=== PATIENT | male | born 1985 | race Caucasian/White ===

== ENCOUNTER 2022-07-19 09:18 | Emergency (ER) | payer OTHER ==
[2022-07-19 09:28] VITALS: BP 149/71
--- NOTE | 2022-07-19 10:35 | ED Physician Documentation ---
PD HPI UPPER EXT INJURY - Stated complaint Stated Complaint: SWOLLEN RT ELBOW - Chief complaint Chief Complaint: Ext Problem - History obtained from History obtained from: Patient - History of Present Illness Location: Right, Elbow Type of injury: Other (does work outdoors with hand tools. No noted direct impact/injury.). No: Fall, Twist Timing - onset: How many weeks ago (1) Timing - duration: Weeks (1) Timing - details: Gradual onset, Still present (worsening despite trying to use less forcefully.) Worsened by: Moving, Palpating Associated symptoms: Swelling, Discolored (redness the past 2-3d ays, increased.). No: Weakness, Numbness Similar symptoms before: Has not had sx before Review of Systems Constitutional: denies: Fever, Chills Nose: denies: Rhinorrhea / runny nose, Congestion Throat: denies: Sore throat Respiratory: denies: Cough Skin: denies: Abrasion (s), Laceration (s) Neurologic: denies: Focal weakness, Numbness PD PAST MEDICAL HISTORY - Past Medical History Past Medical History: Yes Respiratory: Asthma Musculoskeletal: None, Other (denies prior gout) - Past Surgical History Past Surgical History: Yes - Allergies Allergies/Adverse Reactions: Allergies Allergy/AdvReac Type Severity Reaction Status Date / Time No Known Drug Allergies Allergy Verified 07/19/22 09:28 - Social History Does the pt smoke?: No Smoking Status: Never smoker Does the pt drink ETOH?: Yes Does the pt have substance abuse?: Yes Substance Use and Type: Marijuana - Immunizations Immunizations are current?: Yes PD ED PE NORMAL - Vitals Vital signs reviewed: Yes - General General: Alert and oriented X 3, No acute distress, Well developed/nourished - Derm Derm: Normal color, Warm and dry - Extremities Extremities: Other (right elbow with redness and warmth in [place] around the bursa. No skin sores. No spread beyond a uniform lower [place] around bursa. ) - Neuro Neuro: No motor deficit, No sensory deficit Results - Vitals Vitals: Vital Signs - 24 hr 07/19/22 09:26 Temperature 36.5 C Heart Rate 71 Respiratory 16 Rate Blood Pressure 149/71 H O2 Saturation 98 Oxygen O2 Source Room air PD Medical Decision Making - ED course Complexity details: considered differential (looks and feels like bursitis. No history of gout. ), d/w patient Departure - Departure Disposition: 01 Home, Self Care Clinical Impression: Olecranon bursitis of right elbow Condition: Stable Record reviewed to determine appropriate education?: Yes Instructions: ED Bursitis Elbow Olecranon Follow-Up: Orthopedic Care [Provider Group] Comments: This looks to be simple bursitis of the elbow. Does not have the appearance I would feel of an infectious bursitis. I would treat it with decreased motion and vigorous activity of the elbow such as shoveling chopping raking etc. Minimize it over the next several days to week if you can. An Mark wrap over the area may be helpful for swelling. Try not to lean on your elbow as well to decrease irritation. I would suggest some regular anti-inflammatory such as ibuprofen 3 [id number] tablets 2 or 3 times daily with food regularly for the next 5 to 7 days. Add Tylenol if needed for pain. This will typically improve it and then be done. The issue then would be if you have repetitive episodes in the same area or through other joints, then consideration would be for systemic issues such as gout or rheumatoid arthritis. At this point I do not feel you need any testing for those based on this episode. More so would be if you have repetitive episodes. Recheck if not better in the next week. Follow-up with your primary care or walk-in clinic or more to the point with the orthopedic office. Other considerations would be cysts even more decreased use, possible sling, and also changes in anti-inflammatories to include steroid oral type anti-inflammatories. These likely will not be needed. Discharge Date/Time: 07/19/22 11:11
== END 2022-07-19 11:11 | disposition home or self-care (01) ==
LOC: ED 09:18
DX: M70.21 Olecranon bursitis, right elbow (principal)
CPT/HCPCS: 99282; 99283

== ENCOUNTER 2023-07-15 14:30 | Outpatient (CLI) | payer OTHER | END 2023-07-15 14:31 | disposition home or self-care (01) | LOC: LAB 14:30 | PROVIDERS: ATTEND Urology | DX: Z12.5 Encounter for screening for malignant neoplasm of prostate (principal) | CPT/HCPCS: 36415; 84153 ==